=== PATIENT | male | born 1935 | race Caucasian/White ===

== ENCOUNTER 2017-01-07 16:01 | Inpatient (IN) ==
--- NOTE | 2017-01-07 16:44 | Emergency Department Note ---
Disposition Clinical Impression: Pulmonary embolism Qualifiers: Pulmonary embolism type: other Chronicity: acute Acute cor pulmonale presence: without acute cor pulmonale Qualified Code(s): I26.99 - Other pulmonary embolism without acute cor pulmonale Disposition: Admitted As Inpatient Referrals: Bo Bradshaw MD [Primary Care Provider] - Forms: ED Satisfaction Letter SOB HPI - General Chief Complaint: ED Shortness of Breath/Dyspnea Stated Complaint: Positive CT for PE Time Seen by Provider: 01/07/17 16:44 Source: patient, family Limitations: no limitations Nursing Notes Reviewed: Yes Vital Signs Reviewed: Yes - History of Present Illness Pt Subjective Complaint: shortness of breath Onset (ago): week(s) (1) Context: recent illness (pneumonia) Severity: moderate Consistency/Duration: intermittent Improves with: rest Worsens with: exertion Associated symptoms: Reports: cough. Denies: fever Treatment prior to arrival: other (levaquin) Cough present: Yes Cough Description: Involuntary Cough Frequency: Intermittent Sputum production: Yes Sputum Amount: Scant - Related Data Home Medications Medication Instructions Recorded Confirmed Aspirin [Adult Low Dose Aspirin EC] 01/20/16 Calcium 01/20/16 Multivitamin 01/20/16 Vitamin C 01/20/16 Vitamin D 01/20/16 Zetia 01/20/16 01/20/16 Previous Rx's Medication Instructions Recorded Cyclobenzaprine [Flexeril] 10 mg PO HS PRN #10 tablet 01/20/16 HYDROcodone/Acet 5/325 mg [Luckey 1 tab PO Q6H PRN #12 tab 01/21/16 5-325 mg] Docusate [Colace] 100 mg PO DAILY #30 capsule 12/29/16 Doxycycline 100 mg PO ONCE #20 capsule 12/29/16 Ondansetron ODT [Zofran ODT] 4 mg SL Q6HR PRN #14 tab.rapdis 12/31/16 Allergies Allergy/AdvReac Type Severity Reaction Status Date / Time Penicillins [PCN] Allergy Rash Verified 01/07/17 16:31 red dye Allergy See Verified 01/07/17 16:31 Comments All systems ED: reviewed and negative except as stated. Constitutional: Denies: fever, chills, weakness Respiratory: Denies: wheezes Gastrointestinal: Denies: nausea, vomiting Past Medical History - Past Medical History Source: patient, old records reviewed, nursing notes reviewed Medical history: Reports: kidney stones, other Surgical history: Reports: non-contributory Psychiatric history: Reports: no psych history - Social History Smoking Status: Never smoker Smokeless Tobacco Status: No Alcohol use: Reports: none Drug use: Reports: none Physical Exam - General Limitations: no limitations General appearance: alert, in no apparent distress - Head Head exam: atraumatic, normocephalic, normal inspection - Eye Eye exam: Present: normal appearance, PERRL, EOMI - Expanded Eye Exam Pupils: Left: reactive - ENT ENT exam: normal exam, normal oropharynx, mucous membranes moist - Expanded ENT Exam External ear exam: Present: normal external inspection Mouth exam: Present: normal external inspection Teeth exam: Present: normal inspection Throat exam: Present: normal inspection - Neck Neck exam: Present: normal inspection, full ROM, trachea midline - Chest Chest inspection: Present: normal inspection, symmetric chest wall rise - Respiratory Respiratory exam: Present: normal lung sounds bilaterally - Cardiovascular Cardiovascular exam: Present: regular rate, normal rhythm, normal heart sounds - Abdominal Exam Abdominal exam: Present: soft, Non-Tender. Absent: tenderness, distention, guarding, rebound, rigidity - Extremities Exam Extremities exam: Present: normal inspection, full ROM. Absent: tenderness, pedal edema - Expanded Upper Extremity Exam Shoulder exam: Present: normal inspection, full ROM Arm exam: Present: normal inspection, full ROM Elbow exam: Present: normal inspection, full ROM Forearm/Wrist exam: Present: normal inspection, full ROM Hand exam: Present: normal inspection, full ROM Vascular exam: Normal: capillary refill, radial pulse - Expanded Lower Extremity Exam Hip/Pelvis exam: Present: normal inspection, full ROM Upper leg exam: Present: normal inspection, full ROM Knee exam: Present: normal inspection, full ROM Lower leg exam: Present: normal inspection, full ROM Ankle exam: Present: normal inspection, full ROM Foot/toe exam: Present: normal inspection, full ROM Neurovascular/Tendon exam: Absent: motor deficit, sensory deficit, tendon deficit - Back Exam Back exam: Present: normal inspection, full ROM. Absent: tenderness - Neurological Exam Neurological exam: Present: alert, oriented X3 - Expanded Neurological Exam Patient oriented to: Present: person, place, time Coma Scale Eye Opening: Spontaneous Coma Scale Motor Response: Obeys Commands Coma Scale Verbal Response: Oriented Coma Scale Total: 15 - Psychiatric Psychiatric exam: Present: normal affect, normal mood - Skin Skin exam: Present: warm, dry, intact, normal color Course Vital Signs Temperature 98.0 F 01/07/17 16:28 Pulse Rate 74 01/07/17 16:28 Respiratory Rate 20 01/07/17 16:28 Blood Pressure 150/81 01/07/17 16:28 O2 Sat by Pulse Oximetry 96 01/07/17 16:28 Temperature 98.0 F 01/07/17 16:28 Pulse Rate 74 01/07/17 16:28 Respiratory Rate 20 01/07/17 16:28 Blood Pressure 150/81 01/07/17 16:28 O2 Sat by Pulse Oximetry 96 01/07/17 16:28 Oxygen Delivery Oxygen Delivery Room Air Shortness of Breath/Dyspnea - Differential Diagnosis Likely: acute exacerbation of chronic obstructive airways disease, congestive heart failure, pneumonia, asthma with exacerbation, pulmonary embolism, arrhythmia - Medical Records Medical records reviewed: Yes I reviewed the patient's medical records. - Lab Data Lab results reviewed: Yes I reviewed the patient's lab results. Result diagrams: 01/07/17 17:26 01/07/17 17:26 Lab Results 01/07/17 01/07/17 01/07/17 Range/Units 17:26 17:26 17:26 WBC 10.6 (4.3-11.1) K/mcL RBC 4.69 (4.19-5.50) M/mcL Hgb 14.0 (12.9-16.9) g/dL Hct 43.0 (37.5-50.1) % MCV 91.7 (83.0-100.0) fL MCH 29.9 (28.0-33.3) pg MCHC 32.6 (31.6-35.5) g/dL RDW 13.5 (11.5-14.5) % Plt Count 265 (140-400) K/mcL MPV 9.7 (9.4-12.4) fL Immature Gran % 0.8 (0-4) % Seg Neutrophils % 81.8 % Lymphocytes % 10.0 % Monocytes % 7.3 % Eosinophils % 0.0 % Basophils % 0.1 % Neutrophils # 8.7 (1.6-8.9) K/mcL Lymphocytes # 1.1 (0.6-4.6) K/mcL Monocytes # 0.8 (0.0-1.3) K/mcL Eosinophils # 0.0 (0.0-0.6) K/mcL Basophils # 0.0 (0.0-0.2) K/mcL PT 14.4 H (9.4-12.1) Seconds INR 1.3 APTT 28.2 (26.0-36.0) Seconds Sodium 138 (136-145) mEq/L Potassium 4.5 (3.5-4.5) mEq/L Chloride 103 (98-109) mEq/L Carbon Dioxide 28 (19-29) mEq/L BUN 24 (8-26) mg/dL Creatinine 1.14 (0.72-1.25) mg/dL Est GFR ( Amer) > 60 (> 60) Est GFR (Non-Af Amer) > 60 (> 60) BUN/Creatinine Ratio 21 (6-26) Glucose 117 H (70-99) mg/dL Calculated Osmolality 291 (280-300) Calcium 9.5 (8.6-10.8) mg/dL - Radiology Data Radiology results reviewed: Yes I reviewed the patient's radiology results. Critical Care Time Critical Care Time: Yes Total Critical Care Time: 40 Attestation: Critical care performed: Time is exclusive of separately billable procedures. Time includes: direct patient care, patient reassessment, coordination of patient care, interpretation of data (laboratory data, radiology data, and respiratory data), review of patient's medical records, medical consultation and documentation of patient care. Procedures included in critical care time: Procedures excluded from critical care time:
[2017-01-07] MEDS ORDERED: *HR* Heparin 5,000 UNIT/ML VIAL IVP PRN ×2 (16:59)
[2017-01-07] MEDS ORDERED: *HR* Heparin 5,000 UNIT/ML VIAL IVP ONE (16:59)
[2017-01-07] MEDS ORDERED: Heparin 25,000 UNIT/500 ML D5W 25,000 UNIT/500 ML MLS IVC SCH (17:00)
[2017-01-07 17:36] LABS: Basophils % 0.1 %; Immature Granulocytes % 0.8 % (0-4); Lymphocytes # 1.1 K/mcL (0.6-4.6); Mean Corpuscular HGB Conc 32.6 g/dL (31.6-35.5); Mean Corpuscular Hemoglobin 29.9 pg (28.0-33.3); Mean Corpuscular Volume 91.7 fL (83.0-100.0); Mean Platelet Volume 9.7 fL (9.4-12.4); Monocytes # 0.8 K/mcL (0.0-1.3); Monocytes % 7.3 %; Neutrophils # 8.7 K/mcL (1.6-8.9); Platelet Count 265 K/mcL (140-400); Red Blood Count 4.69 M/mcL (4.19-5.50); Red Cell Distribution Width 13.5 % (11.5-14.5); Segmented Neutrophils % 81.8 %
[2017-01-07 17:39] LABS: INR 1.3; Prothrombin Time 14.4 Seconds (9.4-12.1)
[2017-01-07 17:43] LABS: Activated Partial Thrombo Time 28.2 Seconds (26.0-36.0)
[2017-01-07 17:48] LABS: BUN/Creatinine Ratio 21 (6-26); Blood Urea Nitrogen 24 mg/dL (8-26); Calcium 9.5 mg/dL (8.6-10.8); Carbon Dioxide 28 mEq/L (19-29); Chloride 103 mEq/L (98-109); Glucose 117 mg/dL (70-99); Osmolality,Calculated 291 (280-300); Potassium 4.5 mEq/L (3.5-4.5); Sodium 138 mEq/L (136-145); eGFR For African Americans > 60 (> 60); eGFR For Non-African Americans > 60 (> 60)
[2017-01-07] MEDS ORDERED: Ondansetron 4 MG/2 ML VIAL IVP PRN (20:51)
[2017-01-07] MEDS ORDERED: Naloxone 0.4 MG/ML INJ IVP PRN (20:51)
[2017-01-07] MEDS ORDERED: Acetaminophen 325 MG TABLET PO PRN (20:51)
[2017-01-07] MEDS ORDERED: *HR* Morphine 2 MG/ML SYRINGE IVP PRN (20:51)
--- NOTE | 2017-01-07 23:25 | Internal Med History&Physical ---
Date of Encounter: 01/08/17 Time of Encounter: 23:23 Assessment and Plan (1) Acute pulmonary embolus Current visit: Yes Status: Acute We will admit patient to the medical service. Start IV heparin drip. I had a long discussion with the patient about the options emphasizing the risks and benefits of both warfarin and new oral anticoagulants. Patient has not made a decision yet. We will treat him with oxygen by nasal cannula. Obtain lower extremity venous Doppler to rule out DVT. I will request PT and OT evaluation. He is at high risk for morbidity and mortality and complications due to IV heparin which requires intensive frequent monitoring of coagulation parameters. Qualifiers: Pulmonary embolism type: other Acute cor pulmonale presence: without acute cor pulmonale Qualified Code(s): I26.99 - Other pulmonary embolism without acute cor pulmonale (2) DVT prophylaxis Current visit: Yes Status: Acute He will be fully adequate anticoagulated with heparin. (3) Dyspnea Current visit: No Status: Acute Check ambulatory oxygen saturation. Qualifiers: Dyspnea type: dyspnea on exertion Qualified Code(s): R06.09 - Other forms of dyspnea Internal Medicine - H&P: HPI Chief complaint: Dyspnea Admitted From: Emergency Dept Plans for Post Hospital Care: Home History of present illness: Mr. Jose is a 81 year old male w/o PMH who presented for evaluation of 10 day worsening mild to moderate SOB aggavated by exertion (he would still be able to perform strenuous physicial tasks) w/o CP, cough or fever. Resting would improve his symptoms. He has not received treatment with Levaquin and steroids however this did not cause any relief. A 10 point review of systems was negative except per the history of present illness. Family history was reviewed and found to be noncontributory to this presentation. Past Med Surg Social Fam HX - Past Medical History Medical history: kidney stones, other Psychiatric history: no psych history - Past Surgical History Surgical History: non-contributory, knee replacement - Social History Smoking Status: Never smoker Smokeless Tobacco Status: No Alcohol use: none Drug use: none Internal Medicine - H&P: Meds Ascorbate Calcium [Vitamin C] 500 mg PO DAILY 01/20/16 [History] Aspirin [Adult Low Dose Aspirin EC] 81 mg PO DAILY 01/20/16 [History] Calcium Carbonate [Calcium] 500 mg PO DAILY 04/15/16 [History] Cholecalciferol (D-3) [Vitamin D] 1,000 unit PO DAILY 01/20/16 [History] Ezetimibe [Zetia] 10 mg PO MOWEFR 01/20/16 [History] Multivitamin [Multi-Day Vitamins] 1 each PO DAILY 01/20/16 [History] Levofloxacin [Levaquin] 750 mg PO DAILY 01/07/17 [History] MethylPREDNISolone [MethylPREDNISolone Dose Pack] 4 mg PO PER PKG DI 01/07/17 [ History] Allergies Penicillins [PCN] Allergy (Verified 01/07/17 16:31) Rash red dye Allergy (Verified 01/07/17 16:31) See Comments Pt stated makes my kidney burn All Systems PM: A 10-system review of systems was performed and is negative for pertinent findings except as documented above in the HPI. - Constitutional Vitals: Temp Pulse Resp BP Pulse Ox 97.4 F L 71 16 148/81 92 01/07/17 20:01 01/07/17 20:01 01/07/17 20:01 01/07/17 20:01 01/07/17 22:27 General appearance: Present: A&O X 3 - Eye Eye exam: Present: PERRL, conjuntiva pink, sclera anicteric Pupils: Present: PERRL - Neck Neck exam general surgery: Present: supple, trachea midline. Absent: lymphadenopathy - Respiratory Respiratory exam: Present: CTAB. Absent: accessory muscle use, rales, rhonchi, wheezes - Cardiovascular Cardiovascular exam: Present: RRR, +S1, +S2. Absent: diastolic murmur, gallop, rubs, systolic murmur - GI/Abdominal GI/Abdominal exam: Present: normal bowel sounds, soft, no peritoneal signs. Absent: distended, tenderness - Extremities Exam Extremities exam: Present: warm, radial pulses palpable and symetrical (R knee postop scar). Absent: calf tenderness, cyanotic, pedal edema - Neurological Exam Neurological exam: Present: CN II-XII intact, oriented X3, no focal deficits. Absent: pronater drift, facial droop, speech deficit - Skin Skin exam: Present: dry, intact Internal Med - H&P Results - Labs CBC & Chem 7: 01/07/17 17:26 01/07/17 17:26
[2017-01-07] MEDS: 0.9 % Sodium Chloride 1,000 ML IVC SCH (23:55)
[2017-01-08 05:30] LABS: Basophils % 0.1 %; Eosinophils % 0.2 %; Hematocrit 39.6 % (37.5-50.1); Immature Granulocytes % 0.7 % (0-4); Lymphocytes # 1.5 K/mcL (0.6-4.6); Lymphocytes % 16.7 %; Mean Corpuscular HGB Conc 32.8 g/dL (31.6-35.5); Mean Corpuscular Hemoglobin 29.8 pg (28.0-33.3); Mean Corpuscular Volume 90.8 fL (83.0-100.0); Mean Platelet Volume 10.2 fL (9.4-12.4); Monocytes # 0.6 K/mcL (0.0-1.3); Neutrophils # 6.8 K/mcL (1.6-8.9); Platelet Count 246 K/mcL (140-400); Red Blood Count 4.36 M/mcL (4.19-5.50); Red Cell Distribution Width 13.3 % (11.5-14.5); Segmented Neutrophils % 75.3 %
[2017-01-08 05:33] LABS: INR 1.3; Prothrombin Time 14.4 Seconds (9.4-12.1)
[2017-01-08 05:47] LABS: Alanine Aminotransferase 24 Units/L (0-55); Albumin 2.5 g/dL (3.5-5.0); Albumin/Globulin Ratio 0.6 (1.1-2.2); Alkaline Phosphatase 69 Units/L (38-126); Aspartate Amino Transferase 19 Units/L (5-34); BUN/Creatinine Ratio 21 (6-26); Bilirubin,Total 0.6 mg/dL (0.2-1.2); Blood Urea Nitrogen 23 mg/dL (8-26); Calcium 9.1 mg/dL (8.6-10.8); Carbon Dioxide 22 mEq/L (19-29); Chloride 105 mEq/L (98-109); Chol/HDL Ratio 4.8 (0-4.9); Cholesterol 203 mg/dL (< 200); Globulin 4.1 g/dL (2.4-3.5); Glucose 117 mg/dL (70-99); HDL Cholesterol 42 mg/dL (40-59); LDL Cholesterol,Calculated 145 mg/dL (0-99); Magnesium 1.8 mg/dL (1.6-2.6); Osmolality,Calculated 291 (280-300); Potassium 4.2 mEq/L (3.5-4.5); Sodium 138 mEq/L (136-145); Total Protein 6.6 g/dL (6.0-8.3); Triglycerides 79 mg/dL (< 150); eGFR For African Americans > 60 (> 60); eGFR For Non-African Americans > 60 (> 60)
[2017-01-08] MEDS: 0.9 % Sodium Chloride 1,000 ML IVC SCH (06:19)
[2017-01-08] MEDS ORDERED: levoFLOXacin 750 MG TABLET PO SCH (09:00)
--- NOTE | 2017-01-08 09:06 | Electrocardiograph Report ---
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
[2017-01-08] MEDS: Aspirin Enteric Coated 81 MG Tablet PO SCH (09:08)
--- NOTE | 2017-01-08 11:37 | Internal Med Progress Note ---
Date of Encounter: 01/09/17 Time of Encounter: 11:36 - Assessment and plan (1) Acute pulmonary embolus Current Visit: Yes Status: Acute Assessment and plan: Continue with heparin drip. I have had an extensive discussion with the patient and family about outpatient anticoagulation options. They will make a decision between warfarin and new oral anticoagulants today. Qualifiers: Pulmonary embolism type: other Acute cor pulmonale presence: without acute cor pulmonale Qualified Code(s): I26.99 - Other pulmonary embolism without acute cor pulmonale (2) DVT prophylaxis Current Visit: Yes Status: Acute Assessment and plan: Currently on heparin drip. (3) Dyspnea Current Visit: No Status: Inactive Assessment and plan: Oxygen by nasal cannula as needed for shortness of breath or hypoxia He is at high risk for morbidity mortality and complications due to treatment with IV heparin drip which requires intensive coagulation parameters monitoring. Qualifiers: Dyspnea type: dyspnea on exertion Qualified Code(s): R06.09 - Other forms of dyspnea - Subjective Interval history: He reports that his chest pain has improved over the last 24 hours. Currently 0 /10 at rest, no associated shortness of breath. Denies cough. Denies fevers chills nausea and leg swelling. - Constitutional Vitals: Temp Pulse Resp BP Pulse Ox 99.3 F 77 18 174/68 95 01/08/17 08:33 01/08/17 08:33 01/08/17 08:33 01/08/17 08:33 01/08/17 08:33 General appearance: Present: A&O X 3 - Eye Eye exam: Present: PERRL, conjuntiva pink, sclera anicteric Pupils: Present: PERRL - Respiratory Respiratory exam: Present: CTAB. Absent: accessory muscle use, rales, rhonchi, wheezes - Cardiovascular Cardiovascular exam: Present: RRR, +S1, +S2. Absent: diastolic murmur, gallop, rubs, systolic murmur - GI/Abdominal GI/Abdominal exam: Present: normal bowel sounds, soft, no peritoneal signs. Absent: distended, tenderness - Extremities Exam Extremities exam: Present: warm, radial pulses palpable and symetrical. Absent : calf tenderness, cyanotic, pedal edema - Neurological Exam Neurological exam: Present: CN II-XII intact, oriented X3, no focal deficits. Absent: pronater drift, facial droop, speech deficit Internal Medicine: Result - Labs CBC & Chem 7: 01/09/17 04:35 01/08/17 04:27 Labs: Short CBC 01/08/17 Range/Units 04:27 WBC 9.0 (4.3-11.1) K/mcL Hgb 13.0 (12.9-16.9) g/dL Hct 39.6 (37.5-50.1) % Plt Count 246 (140-400) K/mcL Neutrophils # 6.8 (1.6-8.9) K/mcL BMP 01/08/17 04:27 Sodium 138 Potassium 4.2 Chloride 105 Carbon Dioxide 22 BUN 23 Creatinine 1.07 Glucose 117 H Calcium 9.1 Cardiac Enzymes 01/08/17 01/08/17 Range/Units 00:23 04:27 Troponin I 0.01 0.01 (0-0.03) ng/mL Liver Function 01/08/17 Range/Units 04:27 Total Bilirubin 0.6 (0.2-1.2) mg/dL AST 19 (5-34) Units/L ALT 24 (0-55) Units/L Alkaline Phosphatase 69 (38-126) Units/L Albumin 2.5 L (3.5-5.0) g/dL - ABG Interpretation ABG results: PT/INR, D-dimer PT 14.4 Seconds (9.4-12.1) H 01/08/17 04:27 Consult Discharge Plan - Plan Referrals: Bo Bradshaw MD [Primary Care Provider] - 01/16/17 9:45 am
[2017-01-08] MEDS ORDERED: hydrALAZINE 10 MG TABLET PO PRN (13:36)
[2017-01-08] MEDS: *HR* Enoxaparin 100 MG/ML SYRINGE SQ SCH (16:01)
[2017-01-09] MEDS: *HR* Enoxaparin 100 MG/ML SYRINGE SQ SCH ×2 (05:04→18:02)
[2017-01-09 05:08] LABS: Basophils % 0.2 %; Eosinophils # 0.1 K/mcL (0.0-0.6); Eosinophils % 0.6 %; Hematocrit 39.4 % (37.5-50.1); Hemoglobin 12.8 g/dL (12.9-16.9); Immature Granulocytes % 0.6 % (0-4); Lymphocytes # 1.4 K/mcL (0.6-4.6); Lymphocytes % 17.1 %; Mean Corpuscular HGB Conc 32.5 g/dL (31.6-35.5); Mean Corpuscular Hemoglobin 29.4 pg (28.0-33.3); Mean Corpuscular Volume 90.4 fL (83.0-100.0); Mean Platelet Volume 9.7 fL (9.4-12.4); Monocytes # 0.6 K/mcL (0.0-1.3); Monocytes % 7.3 %; Platelet Count 263 K/mcL (140-400); Red Blood Count 4.36 M/mcL (4.19-5.50); Red Cell Distribution Width 13.6 % (11.5-14.5); Segmented Neutrophils % 74.2 %
[2017-01-09 05:13] LABS: INR 1.3; Prothrombin Time 14.4 Seconds (9.4-12.1)
[2017-01-09] MEDS: Aspirin Enteric Coated 81 MG Tablet PO SCH (08:52)
--- NOTE | 2017-01-09 12:04 | ECHO - Doppler Report ---
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 Ordering Physician: Uli Gill MD Primary Physician: Bo Bradshaw MD Indications: Evaluate for pulmonary embolism Impressions: LVEF 65%. Normal left ventricular size and systolic function. There is evidence of mild diastolic dysfunction of the left ventricle. Normal right ventricular size and function. Mild aortic regurgitation. Aortic sclerosis. Mild mitral regurgitation. Mild tricuspid regurgitation. Mild pulmonary hypertension. Left Ventricular Wall Motion: Rest Echo Findings All wall segments showed normal motion. Findings: Study Quality * Technically adequate exam. ECG Findings * Normal sinus rhythm. Left Ventricle * LVEF 65%. * Normal LV chamber size, wall thickness and function. * Mild left ventricular diastolic dysfunction. Left Atrium * Normal left atrial size. Mitral Valve * Normal mitral valve structure. * No mitral stenosis. * Mild mitral annular calcification * Mild mitral regurgitation. Aortic Valve * Aortic valve not well visualized. There does appear to be mild calcification. * No aortic stenosis. MG 8 mmHg. * Mild aortic regurgitation. Tricuspid Valve * Normal tricuspid valve structure. * Mild tricuspid regurgitation. * Estimated RA pressure is 3 mmHg. * Estimated RVSP is 43 mmHg. * Mild pulmonary hypertension. Pulmonic Valve * Pulmonic valve is not well visualized. * No pulmonic stenosis. * Trace pulmonic regurgitation. Pulmonary Artery * Normal visualized portions of the main pulmonary artery. Right Ventricle * Normal right ventricular structure and function. Right Atrium * Normal right atrial size. Interatrial Septum * Interatrial septum not well evaluated. IVC * Normal IVC dimensions and inspiratory collapse. Pericardium * There is no pericardial effusion present. Aorta * Normally sized aortic root. History 02-15-2014 a Previous Echo was performed. Measurements: BP: 155/ 83 2D Normal Values IVSd: 1.20 cm 0.6 - 1.0 cm LVIDd: 4.20 cm 3.7 - 5.6 cm LVPWd: 1.20 cm 0.6 - 1.1 cm LVIDs: 3.10 cm 1.5 - 3.6 cm AO: 2.80 cm < 4.0 cm LA: 3.40 cm 2.0 - 4.0cm %FS: 26.20 cm >25 % LVOT Diam: 2.00 cm LA volume: 47 Mitral Valve Dec Time:303.00 msec Peak E:.70 m/sec Peak A:.92 m/sec E/A Ratio:0.8 Peak E' Lat Carlin:7.46 cm/s Peak E' Med Carlin:5.35 cm/s E/E' Lat Ratio:9.3 E/E' Med Ratio:13 LVOT Peak Carlin:1.08 m/sec Mean Carlin:.75 m/sec Peak Grad:5.00 mmHg Mean Grad:3.00 mmHg Aortic Valve Peak Carlin:2.23 m/sec Mean Carlin:1.56 m/sec Peak Grad:20.00 mmHg Mean Grad:11.00 mmHg Valve Area:1.74 cm2 AI pressure Half-time: 455.00 msec Tricuspid Valve TV Regurg Peak Grad: 40.00mmHg Updated by Bertha Wood on 01/09/2017 11:58:52 AM electronically signed on 01/09/2017 12:00:29 PM with status of Final Wall Motion Mcbride: 1=Normal, 2=Hypokinesis, 3=Akinesis, 4=Dyskinesis, 5=Aneurysmal, 6=Hyperkinetic, X=Not Visualized (Blank)=Missing
[2017-01-09] MEDS ORDERED: Warfarin perPT PO PRN (18:00)
[2017-01-09] MEDS ORDERED: *HR* Warfarin 5 MG TABLET PO ONE (18:00)
--- NOTE | 2017-01-09 19:08 | Internal Med Progress Note ---
Date of Encounter: 01/09/17 Time of Encounter: 12:00 - Assessment and plan (1) Acute pulmonary embolus Current Visit: Yes Status: Acute Assessment and plan: I switched him to oral subcutaneous Lovenox. Continued this I followed up on discussion about oral anticoagulants. They prefer warfarin. Will start warfarin tonight. Check daily INR and adjust anticoagulation accordingly. Qualifiers: Pulmonary embolism type: other Acute cor pulmonale presence: without acute cor pulmonale Qualified Code(s): I26.99 - Other pulmonary embolism without acute cor pulmonale (2) DVT prophylaxis Current Visit: Yes Status: Acute Assessment and plan: On Lovenox (3) Dyspnea Current Visit: No Status: Inactive Assessment and plan: Oxygen by nasal cannula as needed for shortness of breath or hypoxia He is at high risk for morbidity mortality and complications due to treatment with IV heparin drip which requires intensive coagulation parameters monitoring. Qualifiers: Dyspnea type: dyspnea on exertion Qualified Code(s): R06.09 - Other forms of dyspnea - Subjective Interval history: He reports 0 chest pain at rest. Shortness of breath has significantly improved. He was able to ambulate in the hallway without significant dyspnea. He reports that his chest pain has improved over the last 24 hours. Currently 0 /10 at rest, no associated shortness of breath. Denies cough. Denies fevers chills nausea and leg swelling. - Constitutional Vitals: Temp Pulse Resp BP Pulse Ox 97.8 F 69 16 133/73 93 01/09/17 15:47 01/09/17 15:47 01/09/17 15:47 01/09/17 15:47 01/09/17 15:47 General appearance: Present: A&O X 3 - Eye Eye exam: Present: PERRL, conjuntiva pink, sclera anicteric Pupils: Present: PERRL - Respiratory Respiratory exam: Present: CTAB. Absent: accessory muscle use, rales, rhonchi, wheezes - Cardiovascular Cardiovascular exam: Present: RRR, +S1, +S2. Absent: diastolic murmur, gallop, rubs, systolic murmur - GI/Abdominal GI/Abdominal exam: Present: normal bowel sounds, soft, no peritoneal signs. Absent: distended, tenderness - Neurological Exam Neurological exam: Present: CN II-XII intact, oriented X3, no focal deficits. Absent: pronater drift, facial droop, speech deficit Internal Medicine: Result - Labs CBC & Chem 7: 01/09/17 04:35 01/08/17 04:27 Labs: Short CBC 01/09/17 Range/Units 04:35 WBC 8.1 (4.3-11.1) K/mcL Hgb 12.8 L (12.9-16.9) g/dL Hct 39.4 (37.5-50.1) % Plt Count 263 (140-400) K/mcL Neutrophils # 6.0 (1.6-8.9) K/mcL - ABG Interpretation ABG results: PT/INR, D-dimer PT 14.4 Seconds (9.4-12.1) H 01/09/17 04:35 Consult Discharge Plan - Plan Referrals: Bo Bradshaw MD [Primary Care Provider] - 01/16/17 9:45 am
[2017-01-10 00:25] LABS: Basophils % 0.1 %; Eosinophils % 0.3 %; Hematocrit 39.5 % (37.5-50.1); Hemoglobin 13.2 g/dL (12.9-16.9); Immature Granulocytes % 0.8 % (0-4); Immature Platelets 2.7 % (1.1-6.1); Lymphocytes # 1.5 K/mcL (0.6-4.6); Lymphocytes % 14.3 %; Mean Corpuscular HGB Conc 33.4 g/dL (31.6-35.5); Mean Corpuscular Hemoglobin 30.1 pg (28.0-33.3); Mean Platelet Volume 9.4 fL (9.4-12.4); Monocytes # 0.7 K/mcL (0.0-1.3); Monocytes % 7.2 %; Neutrophils # 7.9 K/mcL (1.6-8.9); Platelet Count 320 K/mcL (140-400); Red Blood Count 4.39 M/mcL (4.19-5.50); Red Cell Distribution Width 13.5 % (11.5-14.5); Segmented Neutrophils % 77.3 %
[2017-01-10 00:34] LABS: INR 1.4; Prothrombin Time 14.7 Seconds (9.4-12.1)
[2017-01-10 00:38] LABS: BUN/Creatinine Ratio 20 (6-26); Blood Urea Nitrogen 21 mg/dL (8-26); Calcium 8.6 mg/dL (8.6-10.8); Carbon Dioxide 25 mEq/L (19-29); Chloride 105 mEq/L (98-109); Glucose 117 mg/dL (70-99); Osmolality,Calculated 288 (280-300); Potassium 4.3 mEq/L (3.5-4.5); Sodium 137 mEq/L (136-145); eGFR For African Americans > 60 (> 60); eGFR For Non-African Americans > 60 (> 60)
[2017-01-10] MEDS: *HR* Enoxaparin 100 MG/ML SYRINGE SQ SCH ×2 (03:46→16:34)
[2017-01-10] MEDS: Aspirin Enteric Coated 81 MG Tablet PO SCH (08:44)
--- NOTE | 2017-01-10 13:22 | Electrocardiograph Report ---
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
--- NOTE | 2017-01-10 14:46 | Discharge Summary ---
Date of Encounter: 01/10/17 Time of Encounter: 14:42 - Discharge Diagnosis (1) Acute pulmonary embolus Priority: Primary Status: Acute Qualifiers: Pulmonary embolism type: other Acute cor pulmonale presence: without acute cor pulmonale Qualified Code(s): I26.99 - Other pulmonary embolism without acute cor pulmonale (2) DVT prophylaxis Priority: Secondary Status: Acute (3) Dyspnea Priority: Secondary Status: Inactive Qualifiers: Dyspnea type: dyspnea on exertion Qualified Code(s): R06.09 - Other forms of dyspnea - Discharge Medications Prescriptions: Enoxaparin [Lovenox] 90 mg SQ Q12H #14 syringe Warfarin [Coumadin] 3 mg PO 1800 #30 tablet Home Medications: Ascorbate Calcium [Vitamin C] 500 mg PO DAILY 01/20/16 [History] Aspirin [Adult Low Dose Aspirin EC] 81 mg PO DAILY 01/20/16 [History] Calcium Carbonate [Calcium] 500 mg PO DAILY 01/20/16 [History] Cholecalciferol (D-3) [Vitamin D] 1,000 unit PO DAILY 01/20/16 [History] Ezetimibe [Zetia] 10 mg PO MOWEFR 01/20/16 [History] Multivitamin [Multi-Day Vitamins] 1 each PO DAILY 01/20/16 [History] Enoxaparin [Lovenox] 90 mg SQ Q12H #14 syringe 01/10/17 [Rx] Warfarin [Coumadin] 3 mg PO 1800 #30 tablet 01/10/17 [Rx] Allergies/Adverse Reactions: Allergies Penicillins [PCN] Allergy (Verified 01/07/17 16:31) Rash red dye Allergy (Verified 01/07/17 16:31) See Comments Pt stated makes my kidney burn Procedures/tests Complete & Pending: Procedures Performed prior 72 hours Category Date Time Status ECG 12 lead ECG [ECG] Routine Y 01/08/17 16:51 Completed EV echocardiogram Stat Y 01/09/17 07:00 Completed Date of admission: 01/07/17 20:51 Primary care physician: Bo Bradshaw MD - Patient Status Disposition: Home, Self-Care Condition: Good Functional capacity at discharge: independent ambulation Overall status at discharge: patient is progressing back to baseline - Discharge Instructions Follow Up With: Bo Bradshaw MD [Primary Care Provider] - 01/16/17 9:45 am Additional Instructions: Take Lovenox as instructed for 4 days and any additional days per INR level as instructed by PCP. Call PCP if abnormal bleeding, rash, or confusion. Return to hospital if worsening chest pain, dyspnea, fever or severe abdominal pain. - Diet and Activity Activity: increase activity as tolerated Diet: advance to your usual diet, low salt diet Hospital course: Mr. Jose is a 81 year old male w/o PMH who presented for evaluation of 10 day worsening mild to moderate SOB aggavated by exertion (he would still be able to perform strenuous physicial tasks) w/o CP, cough or fever. Resting would improve his symptoms. He has previously received treatment with Levaquin and steroids however this did not cause any relief. He had a CT scan of the chest which showed evidence of an acute distal right pulmonary embolus with an area of pulmonary infarction. He was admitted to the medical service. He was started on treatment with IV heparin per DVT PE protocol. His shortness of breath and chest pain have improved. He was then transitioned to Lovenox. He was offered extensive information about oral anticoagulation and decided to proceed with warfarin. We started bridging with warfarin yesterday, 2016. He will be discharged on Lovenox and 3 mg of warfarin daily for 4 more days and as long as needed until INR is above 2.0. Goal is 2-3. He will have an INR check tomorrow and on Saturday, January 14 and this should be reported to the PCP. He has been able to ambulated for 6 minutes and his oxygen saturation stayed above 92%. He reported mild to moderate dyspnea on exertion which had improved with walking. He was given extensive counseling about warfarin treatment. He was instructed to follow up closely with his primary care physician and have his INRs called into the PCPs office. - Time Spent with Patient Total time spent providing and/or coordinating discharge services: Greater than 30 minutes (I have spent 40 minutes coordinating this discharge.) - Constitutional Vitals: Temp Pulse Resp BP Pulse Ox 98.9 F 81 18 148/87 95 01/10/17 06:41 01/10/17 06:41 01/10/17 06:41 01/10/17 06:41 01/10/17 09:21 General appearance: Present: A&O X 3 - Respiratory Respiratory exam: Present: CTAB. Absent: accessory muscle use, rales, rhonchi, wheezes - Cardiovascular Cardiovascular exam: Present: RRR, +S1, +S2. Absent: diastolic murmur, gallop, rubs, systolic murmur - Extremities Exam Extremities exam: Present: warm, radial pulses palpable and symetrical. Absent : calf tenderness, cyanotic, pedal edema
[2017-01-10 15:26] VITALS: BP 133/72
[2017-01-10] MEDS ORDERED: *HR* Warfarin 3 MG TABLET PO ONE (18:00)
== END 2017-01-10 17:15 | disposition home or self-care (01) | DRG 176 ==
LOC: EMEROO 16:01 → 3ANU 16:01 → SUATTDRO 20:51
PROVIDERS: ADMIT Internal Medicine; ATTEND Internal Medicine